=== PATIENT | female | born 2000 | race Caucasian/White ===

== ENCOUNTER 2021-06-05 07:57 | Day surgery (SDC) | payer BC ==
[2021-06-04 08:34] LABS: Specific Gravity 1.015 (1.005-1.030)
[2021-06-04 08:35] LABS: Absolute Lymphocytes (CBC) 1.5 K/uL (0.7-4.9); Basophils % 0.4 % (0-1.3); Hematocrit 38.7 % (36.0-45.0); Lymphocytes % 28.4 % (15.3-44.8); MPV 8.9 fL (7.6-11.3); RBC Red Blood Cell Count 4.54 M/uL (3.86-4.86)
[2021-06-04 08:47] LABS: Bilirubin Total 0.5 mg/dL (0.2-1.0); Potassium 4.5 mmol/L (3.5-5.1); Protein, Total 7.8 g/dL (6.4-8.2)
[2021-06-05] MEDS ORDERED: Ringers Lactate 1,000 ML IV ONE ×2 (08:27→11:10)
[2021-06-05] MEDS ORDERED: CEFAZOLIN SODIUM 1 GM/VIAL ONE (08:30)
[2021-06-05] MEDS ORDERED: CEFOXITIN/NS 1gm 0 GM/0 ML BAG ONE (08:32)
[2021-06-05] MEDS ORDERED: propofoL 200 MG/20 ML VIAL IV ONE (10:04)
[2021-06-05] MEDS ORDERED: FENTANYL CITR 100 MCG/2 ML ONE (10:04)
[2021-06-05] MEDS ORDERED: MIDAZOLAM HCL 2 MG/2 ML INJ ONE (10:04)
[2021-06-05] MEDS ORDERED: LIDOCAINE 2% MPF 5 ML VIAL ONE (10:04)
[2021-06-05] MEDS ORDERED: GLYCOPYRROLATE 0.2 MG/ML SYR ONE ×2 (10:07→11:33)
[2021-06-05] MEDS ORDERED: ROCURONIUM 50 MG/5 ML VIAL IV ONE (10:07)
[2021-06-05] MEDS ORDERED: BUPIVACAINE 0.25% PF 30 ML VIAL ONE (10:14)
[2021-06-05] MEDS ORDERED: CEFOXITIN ONE (10:35)
[2021-06-05] MEDS ORDERED: NS ONE (10:35)
--- NOTE | 2021-06-05 10:58 | P.OP ---
Preoperative diagnosis: Chronic Cholecystitis Postoperative diagnosis: Chronic Cholecystitis Primary procedure: Laparoscopic Cholecystectomy Secondary procedure: ICG Cholangiography Anesthesia: GETA + Local Estimated blood loss: <5cc Specimen: Gallbladder Findings: Chronic Cholecystitis, Cystic artery anterior to cystic duct Complications: None Transferred to: Recovery Room Condition: Good
[2021-06-05] MEDS ORDERED: dexAMETHasone 10 MG/ML VIAL ONE (11:00)
[2021-06-05] MEDS ORDERED: ONDANSETRON 4 MG/2 ML VIAL ONE ×2 (11:23→11:50)
[2021-06-05] MEDS ORDERED: NEOSTIGMINE 1 MG/ML -5 ML ONE (11:25)
[2021-06-05] MEDS ORDERED: KETOROLAC 30 MG/ML INJ ONE (11:42)
[2021-06-05] MEDS ORDERED: MEPERIDINE HCL 50 MG/ML ONE (11:46)
[2021-06-05] MEDS ORDERED: PROMETHAZINE INJ 25 MG/ML AMP ONE (12:02)
[2021-06-05] MEDS ORDERED: HYDROCODONE/APAP 7.5/325 MG TAB ONE (12:34)
[2021-06-05 13:44] VITALS: BP 114/68; TEMP 97.2; O2SAT 97
--- NOTE | 2021-06-05 21:14 | OP ---
Date of Procedure: 06/05/2021 Surgeon: Jorje Meng MD, Preoperative Diagnosis: Chronic cholecystitis. Postoperative Diagnosis: Chronic cholecystitis. Procedure Performed: 1. Laparoscopic cholecystectomy. 2. ICG cholangiography. Anesthesia: General endotracheal plus local with 0.25% Marcaine. Estimated Blood Loss: Less than 5 cc. Specimen: Gallbladder. Findings: 1. Chronic cholecystitis. 2. Anterior position of cystic artery coming off at an inferior to anterior position with a long course, short cystic duct. Complications: None. Disposition: The patient transferred to recovery room in good condition. Procedure In Detail: After informed consent was obtained, the patient was brought to the operating room, prepped in the usual sterile fashion. After adequate anesthesia was achieved, a supraumbilical area was anesthetized with 0.25% Marcaine, sharply incised. A 5 mm 0-degree optical trocar was introduced in the abdomen without complication. Insufflation was obtained to 15 mmHg at this time. No injury to vital structures upon entry into the abdomen. Two additional trocars were placed, one in the epigastrium, and one in the right upper quadrant. Both of these were similarly anesthetized, sharply incised. A 5 mm trocar was placed under direct visualization without evidence of complication. The patient was positioned head up right-side up position. The umbilical trocar was upsized to 12 mm without evidence of complication. Ratcheted grasper was used to grasp the patient's gallbladder. Gallbladder was found to be quite large and distended. Positioned the gallbladder towards the patient's right shoulder, allowed for dissection down to expose the cystic duct and cystic artery. There was an unusual positioning of the cystic artery on an anterior course, which was quite easily visualized. It was quite long and had a somewhat curvilinear arc over the cystic duct structures and confluence. This was visualized and the cystic duct and cystic artery were dissected circumferentially using Emelia retractors until the 2 structures skeletonized. At this point, ICG cholangiography was performed and confirmed the anatomic structures. Cystic duct, cystic artery, and common duct were all visualized quite well. At this point, double titanium clips were placed doubly on the proximal side and singly on the distal side of both the cystic duct and cystic artery. These structures were ligated using Endo Te. Electrocautery was then used to remove the gallbladder from the hepatic fossa, sent off for pathologic examination after being placed in EndoCatch bag and removed the umbilical trocar. The abdomen was then re-insufflated and the area was copiously irrigated. Clips were found to be in good anatomic position without any spillage or any additional hemostat was required. The patient was placed back in neutral position. When effluent was suctioned out, the umbilical trocar site was then closed using a Lee-Yogesh suture passer with 0 Vicryl in interrupted fashion. Good approximation of tissues. Remaining trocars removed. All skin incisions copiously irrigated and closed with 4-0 Monocryl in a running fashion. Dermabond placed over top. The patient tolerated the procedure well without evidence of complication and transferred to PACU in good condition. All counts were correct at the end of the case. COLTEN/MALIK Voice ID: [id number] Report ID: [id number] [id number]
== END 2021-06-05 13:00 | disposition home or self-care (01) ==
LOC: OR 07:57
PROVIDERS: ATTEND Surgery
PROC: BF03YZZ Plain Radiography of Gallbladder and Bile Ducts using Other Contrast (ICD-10-PCS; 2021-06-05)
PROC: 0FT44ZZ Resection of Gallbladder, Percutaneous Endoscopic Approach (ICD-10-PCS; principal; 2021-06-05 09:15)
DX: K81.1 Chronic cholecystitis (principal); U07.1 COVID-19
CPT/HCPCS: 85025; 36415; 81025; 88304; 80053; 47563; U0003; J2704; J2550; J2250; J3010; J1100; J2175; J2710; J7120 ×2; J0694; J2405 ×2; J0690